=== PATIENT | female | born 1965 | race Caucasian/White ===

== ENCOUNTER 2020-01-16 09:34 | Emergency (ER) | payer OTHER ==
--- NOTE | 2020-01-16 09:41 | PDOC ---
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 She reports exiting her car and tripping over a curb subsequently twisting her ankle. She has been able to walk since that time but it has been painful. She tried icing it all last night and Ibuprofen with some relief. The pain is mostly in her hallux and lateral foot. It is constant, aching/sharp , non-radiating, worse with walking/touch, and alleviated by rest. She denies any previous surgery or injury to that extremity. 01/16/20 09:42 Past History - Past Medical History Allergies/Adverse Reactions: Allergies Allergy/AdvReac Type Severity Reaction Status Date / Time epinephrine Allergy Severe Difficulty Verified 01/16/20 09:39 Breathing control Allergy Severe Difficulty Uncoded 01/16/20 09:38 Breathing Home Medications: Ambulatory Orders NK [No Known Home Medication] 01/16/20 Anemia: No Asthma: No Cancer: No CVA: (TIA) Diabetes: No GI Disorders: Yes (colon polyps removed.) HTN: No - Surgical History Abdominal Surgery: Yes (tumor removed) Cholecystectomy: No - Psycho Social/Smoking Cessation Hx Smoking Status: No Smoking History: Never smoked Number of Cigarettes Smoked Daily: 0 Hx Alcohol Use: No Drug/Substance Use Hx: No Substance Use Type: None Review of Systems - Review of Systems Able to Perform ROS?: Yes Comments:: GENERAL/CONSTITUTIONAL: No fever or chills. No weakness HEAD, EYES, EARS, NOSE AND THROAT: No change in vision. No change in hearing. No sore throat CARDIOVASCULAR: No chest pain or shortness of breath RESPIRATORY: Denies cough, hemoptysis GASTROINTESTINAL: No nausea, vomiting, diarrhea or constipation GENITOURINARY: No dysuria, frequency, or change in urination MUSCULOSKELETAL: per HPI SKIN: No rash NEUROLOGIC: No headache, vertigo, loss of consciousness, or change in strength/ sensation ENDOCRINE: No increased thirst. No abnormal weight change HEMATOLOGIC/LYMPHATIC: No anemia, easy bleeding, or history of blood clots ALLERGIC/IMMUNOLOGIC: No hives or skin allergy 01/16/20 09:41 Is the patient limited [place] proficient: No *Physical Exam - Physical Exam GENERAL: Awake, alert, and oriented to person/place/time, in no acute distress HEAD: No signs of trauma, normocephalic, atraumatic EYES: PERRLA, EOMI, sclera anicteric, conjunctiva clear ENT: Hearing grossly normal, nares patent, oropharynx clear without exudates. Moist mucosa LUNGS: No distress, speaks in full sentences, clear to auscultation bilaterally HEART: Regular rate and rhythm, normal S1 and S2, no murmurs appreciated, peripheral pulses normal and equal bilaterally ABDOMEN: Soft, nontender, normoactive bowel sounds. No guarding, no rebound. No masses NEUROLOGICAL: Cranial nerves II through XII grossly intact. Normal speech, no focal sensorimotor deficits SKIN: Warm, Dry RLE: Inspection: No erythema or ecchymosis. No tenderness, no obvious abnormalities, no open wounds Sensation: sensation intact to light touch throughout Motor: 5/5 EHL, 5/5 FHL, 5/5 TA, 5/5GS, 5/5 Quad, 5/5 Ham Vascular: 2+ DP/PT LLE: Inspection: No erythema or ecchymosis. 4th metatarsal TTP and hallux TTP. 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 ED Course Tylenol 1g PO once for pain L foot/ankle XR 01/16/20 10:02 ED staff read of XR w/o acute fx/dislocation ESTEVAN wrap and hard shoe provided for comfort Plan for D/C w/ PCP f/u Discharge instructions and return precautions given Patient in agreement and verbalized understanding Dispo: Home 01/16/20 10:25 Discharge - Discharge Information Problems reviewed: Yes Clinical Impression/Diagnosis: Left foot pain Condition: Stable Disposition: HOME - Admission No - Follow up/Referral Referrals: Luis Byrne MD [Primary Care Provider] - - Patient Discharge Instructions Patient Printed Discharge Instructions: How To Perform RICE (Rest, Ice, Compress, Elevate), DI for Musculoskeletal Pain Additional Instructions: You were seen in the Emergency Department for evaluation of left foot pain. Your x-rays were negative for fracture or dislocation. You likely have a strain of your foot. Review the handouts provided at discharge. Follow up with your primary care provider within a week. For pain you may take Tylenol 650mg every 6 hours and Ibuprofen 600mg every 6-8 hours, alternating them each time. Return to the Emergency Department if you develop fevers, chest pain, trouble breathing, worsening pain, change in sensation, worsening symptoms, or any new/ concerning symptoms. - Post Discharge Activity Work/Back to School Note: Back to Work
[2020-01-16] MEDS ORDERED: ACETAMINOPHEN 500 MG TABLET (FP) PO ONE (09:49)
[2020-01-16 10:12] VITALS: BP 107/75; PULSE 70; TEMP 97.8; BMI 25.7
[2020-01-16] MEDS ORDERED: ACETAMINOPHEN 500 MG TABLET (FP) ONE (10:12)
--- NOTE | 2020-01-16 10:21 | PDOC ---
Attending Attestation - Resident Resident Name: CorneliusEdgardo salcido - ED Attending Attestation I have performed the following: I have examined & evaluated the patient, The case was reviewed & discussed with the resident, I agree w/resident's findings & plan - HPI HPI: 01/16/20 10:19 Last evening, the patient twisted her left foot when stepping out of her car into a depression in the pavement. She is complaining of pain in the lateral aspect of the left foot as well as in the region of the great toe. She is able to ambulate, but this causes increased pain. - Physicial Exam PE: 01/16/20 10:19 The left lower leg is non-tender. There is no significant swelling of the bilateral malleolar I and the ankle. There is tenderness along the fourth and fifth metatarsals laterally. There is also tenderness at the joints of the right great toe. There is very slight swelling. Skin is intact. Capillary refill and pulses are normal. Sensation is intact. - Medical Decision Making 01/16/20 10:20 Impression: Left foot and ankle sprain. Rule out fracture Plan: X-rays of the left ankle and foot were performed, multiple views. Upon my preliminary review, there is no evidence of fracture or dislocation. Radiology follow-up procedure activated at the time of discharge. Guilherme bandage applied. Referral given.
== END 2020-01-16 10:33 | disposition home or self-care (01) ==
LOC: FER 09:34
DX: M25.572 Pain in left ankle and joints of left foot (principal); Z88.8 Allergy status to other drugs, medicaments and biological substances; Z86.73 Personal history of transient ischemic attack (TIA), and cerebral infarction without residual deficits; K92.9 Disease of digestive system, unspecified
CPT/HCPCS: 73610-TC-LT-FY; 73630-TC-LT; 99283-25

== ENCOUNTER 2022-01-07 09:45 | Emergency (ER) | payer OTHER ==
[2022-01-07 09:54] VITALS: BP 132/66; PULSE 75; TEMP 97; BMI 25.1
[2022-01-07] MEDS ORDERED: ONDANSETRON 4 MG/2 ML VIAL IVPUSH ONE (10:52)
[2022-01-07] MEDS ORDERED: SODIUM CHLORIDE 1,000 ML IV STA ×2 (10:52→13:42)
[2022-01-07 11:52] LABS: HEMATOCRIT 46.8 % (32.4-45.2); HEMOGLOBIN 15.7 GM/dL (10.7-15.3); MCH 29.5 pg (25.7-33.7); MCHC 33.5 g/dl (32.0-36.0); MEAN PLT VOLUME 7.7 fl (7.5-11.1); PLATELET COUNT 210 10^3/uL (134-434); RBC 5.33 M/mm3 (3.60-5.2); RDW 13.9 % (11.6-15.6)
[2022-01-07] MEDS ORDERED: ONDANSETRON 4 MG/2 ML VIAL ONE (11:57)
[2022-01-07 12:13] LABS: CALCIUM 9.7 mg/dL (8.5-10.1)
[2022-01-07 12:14] LABS: ALBUMIN 4.6 g/dl (3.4-5.0); BLOOD UREA NITROGEN 10.5 mg/dL (7-18)
[2022-01-07 12:17] LABS: CREATININE 0.8 mg/dL (0.55-1.3)
[2022-01-07 12:19] LABS: BILIRUBIN,TOTAL 0.4 mg/dL (0.2-1); TOT PROT 8.1 g/dl (6.4-8.2)
[2022-01-07 12:43] LABS: ANISOCYTOSIS 0; HELMET CELLS 0; HOWELL-JOLLY BODIES 0; MACROCYTOSIS 0; OVALOCYTE 0; ROULEAU 0; SICKELED CELLS 0; TARGET CELLS 0; TEAR DROP CELLS 0; TOXIC GRANULATION 0
[2022-01-07] MEDS ORDERED: ACETAMINOPHEN 1000 MG/100 ML BAG IVPB ONE (13:42)
[2022-01-07] MEDS ORDERED: ACETAMINOPHEN INJECTION 100 ML IVPB ONE (13:48)
[2022-01-07 13:49] LABS: EPI CELLS 4 /uL (0-25.1); HYALINE CASTS 0 /uL (0-3.1); PH,URINE 6.5 (5.0-8.0); URINE APPEARANCE CLEAR; URINE BACTERIA >9,000 /uL (0-1359); URINE BILIRUBIN NEGATIVE (NEGATIVE); URINE COLOR YELLOW; URINE GLUCOSE (UA) NEGATIVE (NEGATIVE); URINE KETONE NEGATIVE (NEGATIVE); URINE LEUK ESTERASE NEGATIVE (NEGATIVE); URINE NITRITE POSITIVE (NEGATIVE); URINE PROTEIN NEGATIVE (NEGATIVE); URINE RBC 2 /uL (0-23.9); URINE UROBILINOGEN 0.2 mg/dL (0.2-1.0); URINE WBC 12 /uL (0-25.8)
[2022-01-08 19:06] LABS: SARS-CoV-2 NAA Not Detected (Not Detected)
== END 2022-01-07 14:47 | disposition home or self-care (01) ==
LOC: JER 09:45 → JERFT 09:45
PROC: 3E0333Z Introduction of Anti-inflammatory into Peripheral Vein, Percutaneous Approach (ICD-10-PCS; principal; 2022-01-07)
PROC: 3E033GC Introduction of Other Therapeutic Substance into Peripheral Vein, Percutaneous Approach (ICD-10-PCS; 2022-01-07)
PROC: 3E0337Z Introduction of Electrolytic and Water Balance Substance into Peripheral Vein, Percutaneous Approach (ICD-10-PCS; 2022-01-07)
PROC: 3E0337Z Introduction of Electrolytic and Water Balance Substance into Peripheral Vein, Percutaneous Approach (ICD-10-PCS; 2022-01-07)
DX: N30.90 Cystitis, unspecified without hematuria (principal)
CPT/HCPCS: 36415; 71046-TC-FY; 80053; 81003; 84484; 85025; 87086; 87186; 93005; 93010; 99285-25; C9803; U0003; U0005

== ENCOUNTER 2024-06-02 11:39 | Emergency (ER) | payer OTHER ==
[2024-06-02 11:53] VITALS: BP 125/81; PULSE 69; RESP 18; TEMP 98.2; BMI 26.6
[2024-06-02] MEDS ORDERED: ACETAMINOPHEN INJECTION 100 ML IVPB ONE (12:46)
[2024-06-02] MEDS ORDERED: ONDANSETRON 4 MG/2 ML VIAL ONE (12:47)
[2024-06-02] MEDS: SODIUM CHLORIDE 0.9% 500 ML INFUS.BAG IV ONE (13:18)
[2024-06-02] MEDS: ONDANSETRON 4 MG/2 ML VIAL IVPUSH ONE (13:18)
[2024-06-02] MEDS: ACETAMINOPHEN 1000 MG/100 ML BAG IVPB ONE (13:18)
[2024-06-02 13:19] LABS: BASO % 0.9 % (0-2.0); EOS % 1.4 % (0-4.5); EPI CELLS 8 /uL (0-25.1); HEMATOCRIT 39.2 % (32.4-45.2); HEMOGLOBIN 13.4 GM/dL (10.7-15.3); HYALINE CASTS 0 /uL (0-3.1); LYMPH % 34.2 % (8-40); MCH 30.1 pg (25.7-33.7); MCHC 34.3 g/dl (32.0-36.0); MEAN CELL VOLUME 87.7 fl (80-96); MONO % 7.2 % (3.8-10.2); NEUT % 56.3 % (42.8-82.8); PLATELET COUNT 225 10^3/uL (134-434); RBC 4.47 M/mm3 (3.60-5.2); RDW 13.6 % (11.6-15.6); URINE APPEARANCE CLEAR; URINE BACTERIA 236 /uL (0-1359); URINE BILIRUBIN NEGATIVE (NEGATIVE); URINE COLOR YELLOW; URINE GLUCOSE (UA) NEGATIVE (NEGATIVE); URINE KETONE NEGATIVE (NEGATIVE); URINE LEUK ESTERASE TRACE (NEGATIVE); URINE NITRITE NEGATIVE (NEGATIVE); URINE PROTEIN NEGATIVE (NEGATIVE); URINE RBC 2 /uL (0-23.9); URINE UROBILINOGEN 0.2 mg/dL (0.2-1.0); URINE WBC 15 /uL (0-25.8); WHITE BLOOD COUNT 4.5 K/mm3 (4.0-10.0)
[2024-06-02 13:45] LABS: POTASSIUM 3.9 mmol/L (3.5-5.1)
[2024-06-02 13:47] LABS: ALBUMIN 3.9 g/dl (3.4-5.0); BLOOD UREA NITROGEN 9.4 mg/dL (7-18); CALCIUM 9.3 mg/dL (8.5-10.1); MAGNESIUM 2.5 mg/dL (1.8-2.4)
[2024-06-02 13:50] LABS: CREATININE 0.8 mg/dL (0.55-1.3)
[2024-06-02 13:52] LABS: BILIRUBIN,TOTAL 0.5 mg/dL (0.2-1); TOT PROT 6.9 g/dl (6.4-8.2)
[2024-06-02] MEDS ORDERED: KETOROLAC TROMETHAMINE 15 MG/ML VIAL ONE (15:11)
[2024-06-02] MEDS: KETOROLAC TROMETHAMINE 15 MG/ML VIAL IVPUSH ONE (15:18)
== END 2024-06-02 17:33 | disposition home or self-care (01) ==
LOC: JER 11:39
PROC: 3E033NZ Introduction of Analgesics, Hypnotics, Sedatives into Peripheral Vein, Percutaneous Approach (ICD-10-PCS; principal; 2024-06-02)
PROC: 3E0333Z Introduction of Anti-inflammatory into Peripheral Vein, Percutaneous Approach (ICD-10-PCS; 2024-06-02)
PROC: 3E033GC Introduction of Other Therapeutic Substance into Peripheral Vein, Percutaneous Approach (ICD-10-PCS; 2024-06-02)
DX: K52.9 Noninfective gastroenteritis and colitis, unspecified (principal); R11.2 Nausea with vomiting, unspecified; R68.83 Chills (without fever); R10.13 Epigastric pain; R10.30 Lower abdominal pain, unspecified
CPT/HCPCS: 36415; 74177-TC; 80053; 81003; 83735; 85025; 87086; 99285-25; J0131; Q9967

== ENCOUNTER 2024-10-09 02:33 | Inpatient (IN) | payer OTHER ==
[2024-10-09 03:19] VITALS: BMI 25.1
[2024-10-09] MEDS ORDERED: ACETAMINOPHEN INJECTION 100 ML ONE ×2 (03:26→08:25)
[2024-10-09] MEDS ORDERED: FAMOTIDINE 20 MG/50 ML IVPB 20 MG/50 ML MG IVPB ONE (03:26)
[2024-10-09] MEDS ORDERED: ONDANSETRON 4 MG/2 ML VIAL ONE ×2 (03:26→06:33)
[2024-10-09] MEDS: ACETAMINOPHEN 1000 MG/100 ML BAG IVPB ONE ×2 (03:28→08:34)
[2024-10-09] MEDS: ONDANSETRON 4 MG/2 ML VIAL IVPUSH ONE (03:28)
[2024-10-09] MEDS: FAMOTIDINE 20 MG/50 ML IVPB 20 MG/50 ML MG IVPB ONE (03:28)
[2024-10-09] MEDS: SODIUM CHLORIDE 0.9% 500 ML INFUS.BAG IV ONE (03:38)
[2024-10-09 04:12] LABS: BASO % 1.2 % (0-2.0); HEMATOCRIT 44.4 % (32.4-45.2); HEMOGLOBIN 14.8 GM/dL (10.7-15.3); LYMPH % 14.5 % (8-40); MCH 29.7 pg (25.7-33.7); MCHC 33.5 g/dl (32.0-36.0); MEAN CELL VOLUME 88.7 fl (80-96); MEAN PLT VOLUME 8.6 fl (7.5-11.1); MONO % 5.4 % (3.8-10.2); NEUT % 77.9 % (42.8-82.8); PLATELET COUNT 222 10^3/uL (134-434); RDW 13.8 % (11.6-15.6); WHITE BLOOD COUNT 7.1 K/mm3 (4.0-10.0)
[2024-10-09 04:31] LABS: CHLORIDE 106 mmol/L (98-107); SODIUM 143 mmol/L (136-145)
[2024-10-09 04:33] LABS: ALBUMIN 4.2 g/dl (3.4-5.0); BLOOD UREA NITROGEN 19.4 mg/dL (7-18); CALCIUM 9.5 mg/dL (8.5-10.1)
[2024-10-09 04:34] LABS: ANION GAP 7 mmol/L (4-13); CO2 31 mmol/L (21-32); GLUCOSE,RANDOM 106 mg/dL (74-106)
[2024-10-09 04:36] LABS: CREATININE 0.9 mg/dL (0.55-1.3); SGOT/AST 18 U/L (15-37); SGPT/ALT 32 U/L (13-61)
[2024-10-09 04:38] LABS: BILIRUBIN,TOTAL 0.5 mg/dL (0.2-1); TOT PROT 7.3 g/dl (6.4-8.2)
[2024-10-09 04:39] LABS: ALK PHOS 79 U/L (45-117)
[2024-10-09 05:11] LABS: EPI CELLS 4 /uL (0-25.1); HYALINE CASTS 0 /uL (0-3.1); PH,URINE 7.5 (5.0-8.0); URINE APPEARANCE CLEAR; URINE BACTERIA >9,000 /uL (0-1359); URINE BILIRUBIN NEGATIVE (NEGATIVE); URINE COLOR YELLOW; URINE GLUCOSE (UA) NEGATIVE (NEGATIVE); URINE KETONE NEGATIVE (NEGATIVE); URINE LEUK ESTERASE NEGATIVE (NEGATIVE); URINE NITRITE POSITIVE (NEGATIVE); URINE PROTEIN NEGATIVE (NEGATIVE); URINE RBC 5 /uL (0-23.9); URINE UROBILINOGEN 0.2 mg/dL (0.2-1.0); URINE WBC 9 /uL (0-25.8)
[2024-10-09 06:05] LABS: LACTIC ACID 2.3 mmol/L (0.4-2.0)
[2024-10-09] MEDS: ONDANSETRON 4 MG/2 ML VIAL IVPB ONE (06:42)
[2024-10-09] MEDS ORDERED: MAG HYDROX/AL HYDROX/SIMETH 30 ML UNIT-DOSE CUP ONE (06:55)
[2024-10-09] MEDS: MAG HYDROX/AL HYDROX/SIMETH 30 ML UNIT-DOSE CUP PO ONE (07:07)
[2024-10-09] MEDS ORDERED: SUCRALFATE 1 GM TABLET (FP) ONE (08:07)
[2024-10-09] MEDS ORDERED: morphine SULFATE 4 MG/ML VIAL ONE (08:07)
[2024-10-09] MEDS: morphine CARPU-JECT 4 MG/1 ML DISP.SYRIN IVPUSH ONE (08:14)
[2024-10-09] MEDS: SUCRALFATE 1 GM TABLET (FP) PO ONE (08:14)
[2024-10-09] MEDS: LACTATED RINGERS SOLUTION 1000 ML INFUS.BAG IV ONE (08:34)
[2024-10-09] MEDS ORDERED: CEFTRIAXONE 1 G/50 ML PREMIX 50 ML IVPB ONE (09:25)
[2024-10-09] MEDS: ONDANSETRON 4 MG/2 ML VIAL IVPUSH PRN (15:18)
[2024-10-09] MEDS: DEXTROSE 5%-0.45% SALINE 1,000 ML IV SCH (17:09)
[2024-10-09] MEDS: ACETAMINOPHEN 1000 MG/100 ML BAG IVPB PRN (19:00)
[2024-10-09] MEDS: PANTOPRAZOLE SODIUM 40 MG VIAL IVPUSH ONE (20:31)
[2024-10-10] MEDS: CEFTRIAXONE 1 G/50 ML PREMIX 50 ML IVPB SCH (09:48)
[2024-10-10] MEDS: ENOXAPARIN NA (PORCINE) 40 MG/0.4 ML DISP.SYRIN SQ SCH (09:50)
[2024-10-10 09:55] LABS: BASO % 0.5 % (0-2.0); EOS % 1.7 % (0-4.5); HEMATOCRIT 43.9 % (32.4-45.2); HEMOGLOBIN 14.6 GM/dL (10.7-15.3); LYMPH % 22.3 % (8-40); MCH 29.3 pg (25.7-33.7); MCHC 33.2 g/dl (32.0-36.0); MEAN CELL VOLUME 88.3 fl (80-96); MEAN PLT VOLUME 8.4 fl (7.5-11.1); MONO % 7.2 % (3.8-10.2); NEUT % 68.3 % (42.8-82.8); PLATELET COUNT 186 10^3/uL (134-434); RBC 4.97 M/mm3 (3.60-5.2); RDW 13.9 % (11.6-15.6); WHITE BLOOD COUNT 4.6 K/mm3 (4.0-10.0)
[2024-10-10 10:11] LABS: POTASSIUM 3.9 mmol/L (3.5-5.1)
[2024-10-10 10:16] LABS: ALBUMIN 3.7 g/dl (3.4-5.0); BLOOD UREA NITROGEN 8.9 mg/dL (7-18); CALCIUM 9.1 mg/dL (8.5-10.1)
[2024-10-10 10:20] LABS: CREATININE 0.9 mg/dL (0.55-1.3)
[2024-10-10 10:21] LABS: BILIRUBIN,TOTAL 0.4 mg/dL (0.2-1); TOT PROT 6.3 g/dl (6.4-8.2)
[2024-10-10 14:28] LABS: CHOLESTEROL 236 mg/dL (50-200)
[2024-10-10 14:29] LABS: LDL CHOLESTEROL (ONLY SJRH) 124 mg/dL (5-100)
[2024-10-10 14:31] LABS: HDL CHOLESTEROL 82 mg/dL (40-60)
[2024-10-10] MEDS: ACETAMINOPHEN 1000 MG/100 ML BAG IVPB PRN (16:21)
[2024-10-11 07:57] LABS: BASO % 0.4 % (0-2.0); EOS % 1.2 % (0-4.5); HEMATOCRIT 41.6 % (32.4-45.2); LYMPH % 26.7 % (8-40); MCH 29.7 pg (25.7-33.7); MCHC 33.7 g/dl (32.0-36.0); MEAN PLT VOLUME 8.3 fl (7.5-11.1); MONO % 8.6 % (3.8-10.2); NEUT % 63.1 % (42.8-82.8); PLATELET COUNT 186 10^3/uL (134-434); RBC 4.72 M/mm3 (3.60-5.2); RDW 13.3 % (11.6-15.6); WHITE BLOOD COUNT 4.7 K/mm3 (4.0-10.0)
[2024-10-11 08:17] LABS: POTASSIUM 4.3 mmol/L (3.5-5.1)
[2024-10-11 08:22] LABS: ALBUMIN 3.3 g/dl (3.4-5.0)
[2024-10-11 08:25] LABS: CREATININE 0.8 mg/dL (0.55-1.3)
[2024-10-11 08:26] LABS: BILIRUBIN,TOTAL 0.3 mg/dL (0.2-1)
[2024-10-11] MEDS: PANTOPRAZOLE 40 MG TABLET PO SCH (09:13)
[2024-10-11] MEDS: ACETAMINOPHEN 1000 MG/100 ML BAG IVPB PRN (19:19)
[2024-10-12 10:05] LABS: BASO % 0.6 % (0-2.0); EOS % 1.5 % (0-4.5); HEMATOCRIT 42.4 % (32.4-45.2); HEMOGLOBIN 13.9 GM/dL (10.7-15.3); LYMPH % 36.9 % (8-40); MCH 29.1 pg (25.7-33.7); MCHC 32.7 g/dl (32.0-36.0); MEAN CELL VOLUME 89.1 fl (80-96); MEAN PLT VOLUME 8.2 fl (7.5-11.1); MONO % 8.7 % (3.8-10.2); NEUT % 52.3 % (42.8-82.8); PLATELET COUNT 196 10^3/uL (134-434); RBC 4.76 M/mm3 (3.60-5.2); RDW 13.3 % (11.6-15.6); WHITE BLOOD COUNT 3.8 K/mm3 (4.0-10.0)
[2024-10-12 10:15] LABS: POTASSIUM 3.7 mmol/L (3.5-5.1)
[2024-10-12 10:18] LABS: BLOOD UREA NITROGEN 6.1 mg/dL (7-18); CALCIUM 8.9 mg/dL (8.5-10.1)
[2024-10-12 10:19] LABS: ALBUMIN 3.4 g/dl (3.4-5.0)
[2024-10-12 10:21] LABS: CREATININE 0.8 mg/dL (0.55-1.3)
[2024-10-12 10:23] LABS: BILIRUBIN,TOTAL 0.5 mg/dL (0.2-1); TOT PROT 6.1 g/dl (6.4-8.2)
[2024-10-12] MEDS: PANTOPRAZOLE 40 MG TABLET PO SCH (21:14)
[2024-10-12] MEDS: ACETAMINOPHEN 500 MG TABLET (FP) PO ONE (23:15)
[2024-10-13] MEDS: ACETAMINOPHEN 500 MG TABLET (FP) PO ONE (06:39)
[2024-10-13 09:10] LABS: BASO % 0.5 % (0-2.0); EOS % 1.7 % (0-4.5); HEMATOCRIT 42.4 % (32.4-45.2); HEMOGLOBIN 14.1 GM/dL (10.7-15.3); LYMPH % 26.4 % (8-40); MCH 29.5 pg (25.7-33.7); MCHC 33.3 g/dl (32.0-36.0); MEAN CELL VOLUME 88.7 fl (80-96); MONO % 6.6 % (3.8-10.2); NEUT % 64.8 % (42.8-82.8); PLATELET COUNT 191 10^3/uL (134-434); RBC 4.78 M/mm3 (3.60-5.2); RDW 13.3 % (11.6-15.6); WHITE BLOOD COUNT 5.4 K/mm3 (4.0-10.0)
[2024-10-13 09:37] LABS: CALCIUM 9.3 mg/dL (8.5-10.1)
[2024-10-13 09:38] LABS: ALBUMIN 3.6 g/dl (3.4-5.0); BLOOD UREA NITROGEN 5.6 mg/dL (7-18)
[2024-10-13 09:41] LABS: CREATININE 0.8 mg/dL (0.55-1.3)
[2024-10-13 09:42] LABS: BILIRUBIN,TOTAL 0.5 mg/dL (0.2-1)
[2024-10-13 09:43] LABS: TOT PROT 6.4 g/dl (6.4-8.2)
[2024-10-13 13:08] LABS: PARATHYROID HORM INTACT 39 pg/mL (15-65)
[2024-10-13 13:50] VITALS: BP 122/76; PULSE 64; RESP 18; TEMP 98.1
== END 2024-10-13 16:24 | disposition home or self-care (01) | DRG 690 ==
LOC: JER 02:33 → JERBED 08:41 → J5S 10:12 → OBSVTOIN 13:22
PROVIDERS: ADMIT Internal Medicine; ATTEND Internal Medicine
PROC: 0DB68ZX Excision of Stomach, Via Natural or Artificial Opening Endoscopic, Diagnostic (ICD-10-PCS; principal; 2024-10-12 14:00)
DX: N39.0 Urinary tract infection, site not specified (principal); E87.20 Acidosis, unspecified; K86.1 Other chronic pancreatitis; R51.9 Headache, unspecified; R10.9 Unspecified abdominal pain; K29.50 Unspecified chronic gastritis without bleeding
CPT/HCPCS: 36415; 70450-TC; 74177-TC; 74182-TC; 80053; 80061; 81003; 82310; 82787; 83605; 83690; 83970; 84484; 85025; 86140; 87086; 88305-TC; 88341-TC; 88342-TC; 93005; 93010; 99285-25; G0378; J0131; Q9967